=== PATIENT | male | born 1975 | race Caucasian/White ===

== ENCOUNTER 2024-02-20 13:26 | Emergency (ER) | payer MEDICAID, SELFPAY ==
[2024-02-20 13:30] VITALS: BP 107/63; PULSE 77; TEMP 36.4; O2SAT 99; BMI 22.9
--- NOTE | 2024-02-20 13:34 | CT_ITS ---
[address] [address] Patient Name: RAFAEL SALAZAR MRN: [id number] date: 1975 Sex: M Assigned Patient Location: ER Current Patient Location: ED.MAIN Accession/Order Number: [id number] Exam Date: 02/20/2024 14:12 Report Date: 02/20/2024 15:08 At the request of: RIKI MERIDA Procedure: CT head/brain wo con HEAD CT WITHOUT CONTRAST, 02/20/2024 2:12 PM EDT: CLINICAL HISTORY: Fall, head injury. COMPARISON: CT head dated 10/29/2023. TECHNIQUE: Noncontrast CT imaging was performed from skull base to the vertex. Sagittal and coronal reconstructions performed. Dose reduction techniques were achieved by using automated exposure control and/or adjustment of mA and/or kV according to patient size and/or use of iterative reconstruction technique. FINDINGS: Ventricular and sulcal size is normal for the patient's age. No areas of abnormal attenuation are identified. There is no mass effect, midline shift or intracranial hemorrhage. There is no evidence of acute infarction. There are no extra axial fluid collections. Stable 3 cm mucus retention cyst versus polyp within the left sphenoid sinus. Mastoid air cells and orbital contents are unremarkable. CT/CT head/brain wo con IMPRESSION: No acute intracranial abnormality. Electronically authenticated by: REED ANSARI Date: 02/20/2024 15:08
[2024-02-20] MEDS: LIDOCAINE HCL 1% 100 MG/10 ML MDV INJ (13:59)
[2024-02-20 14:24] VITALS: BP 107/53; PULSE 77; O2SAT 99
--- NOTE | 2024-02-20 15:38 | ED.WOUNDLAC1 ---
HPI - Wound/Laceration General Chief Complaint: Wound/Laceration Stated Complaint: HEAD INJURY Time Seen by Provider: 02/20/24 13:30 Source: caregiver Mode of arrival: ambulance Limitations: language barrier History of Present Illness HPI narrative: 48-year-old male presents from care facility for facial laceration. He apparently tripped and fell and hit his face on a metal object. No LOC. This happened just before coming into the emergency department and he had a tetanus shot about a year ago. The patient is nonverbal but is accompanied by his caregiver who gives an excellent history. No other apparent injuries were sustained. Related Data Allergies Allergy/AdvReac Type Severity Reaction Status Date / Time No Known Drug Allergies Allergy Verified 02/20/24 13:34 Review of Systems ROS Narrative Not obtainable, not verbal Exam Narrative Exam Narrative: Nurses note and vital signs reviewed and patient is not hypoxic. General: The patient is sitting up and looking around the room. Skin: Warm, dry, no pallor noted. There is no rash noted. Head: Normocephalic, stellate laceration with a total length of 3 cm is present on his right medial eyebrow area Eye: Normal conjunctiva, no drainage Ears, Nose, Mouth, and Throat: oral mucosa is moist. Nares patent. Cardiovascular: Regular Rate and Rhythm Respiratory: Patient is in no distress, no accessory muscle use, lungs are clear to auscultation, no wheezing, rales or rhonchi Back: non-tender GI: Nontender Musculoskeletal: No palpable tenderness to his extremities Neurological: Nonverbal Psychiatric: Not uncooperative Constitutional Vital Signs, click to edit/add: Last Vital Signs Temp 97.6 F 02/20/24 13:30 Pulse 77 02/20/24 14:24 Resp 16 02/20/24 14:24 BP 107/53 02/20/24 14:24 Pulse Ox 99 02/20/24 14:24 O2 Del Method Room Air 02/20/24 13:30 Course Vital Signs Vital signs: Vital Signs Temperature 97.6 F 02/20/24 13:30 Pulse Rate 77 02/20/24 13:30 Respiratory Rate 16 02/20/24 13:30 Blood Pressure 107/63 02/20/24 13:30 Pulse Oximetry 99 02/20/24 13:30 Oxygen Delivery Method Room Air 02/20/24 13:30 Temperature 97.6 F 02/20/24 13:30 Pulse Rate 77 02/20/24 14:24 Respiratory Rate 16 02/20/24 14:24 Blood Pressure 107/53 02/20/24 14:24 Pulse Oximetry 99 02/20/24 14:24 Oxygen Delivery Method Room Air 02/20/24 13:30 MDM - Wound/Laceration MDM Narrative Medical decision making narrative: The wound is repaired. Tetanus status is already up-to-date and sutures are to be removed in 7 days due to the depth of the wound. CT brain negative. Findings are discussed with his caregiver. Differential Diagnosis Differential diagnosis: Likely laceration and other (Intracranial hemorrhage) Imaging Data CT scan - head: Radiologist's impression: ITS Impressions Head CT 02/20/24 13:34 IMPRESSION: No acute intracranial abnormality. Electronically authenticated by: REED ANSARI Date: 02/20/2024 15:08 Discharge Plan Discharge Stand Alone Forms: Portal Instructions Chief Complaint: Wound/Laceration Clinical Impression: Facial laceration Patient Disposition: Home, Self-Care Time of Disposition Decision: 15:37 Condition: Good Mode of Transportation: Private Vehicle Print Language: Spanish Instructions: Laceration (ED) Additional Instructions: Sutures to be removed in 7 days Referrals: Physician,Non-Staff, MD [Primary Care Provider] - 1 week Procedures ED Procedure Instructions Procedures Procedures: The following procedure was performed by me. Local infiltration was carried out with 1% lidocaine without epinephrine resulting in complete skin anesthesia. The area was prepped with Betadine x 3 and draped sterilely. It was explored for foreign bodies and none were found and closed with a total of four 5-0 Ethilon sutures resulting in good skin reapproximation and no complications. Due to the depth of the wound the sutures should be removed in 7 days.
[2024-02-20 15:40] VITALS: BP 105/64; PULSE 86; O2SAT 98
== END 2024-02-20 15:56 | disposition home or self-care (01) ==
PROVIDERS: Emergency Provider Emergency Medicine
DX: S01.81XA Laceration without foreign body of other part of head, initial encounter (principal); W01.119A Fall on same level from slipping, tripping and stumbling with subsequent striking against unspecified sharp object, initial encounter
CPT/HCPCS: 12013; 70450; 99284